=== PATIENT | male | born 1935 | race Caucasian/White ===

== ENCOUNTER 2018-08-12 17:55 | Inpatient (IN) | payer OTHER ==
[~2018-08-12] VITALS: Ht 182.9 cm; Wt 66.3 kg
[2018-08-12 17:57] VITALS: BP 126/73
[2018-08-12 20:38] LABS: AMP/METHAMP Negative (Negative); BARBITURATES Negative (Negative); BENZODIAZEPINES Negative (Negative); COCAINE Negative (Negative); METHADONE Negative (Negative); OPIATES POSITIVE (Negative); PCP Negative (Negative)
[2018-08-12] MEDS ORDERED: SEROQUEL 50 MG50 MG PO (20:39)
[2018-08-12] MEDS ORDERED: DEPAKOTE SPRIN125 MG PO ×2 (20:39→20:56)
[2018-08-12] MEDS ORDERED: DURAGESIC1 EACH TOP (20:40)
[2018-08-12] MEDS ORDERED: HALDOL5 MG/1 ML PO (20:40)
[2018-08-12 20:50] LABS: HEMOGLOBIN 13.7 gm/dL (14.0-18.0); MCH 29.4 pg (26.0-34.0); MCHC 33.6 g/dL (28.0-37.0); MCV 87.6 fL (80.0-100.0); PLATELET COUNT 198 thou/uL (150-400); RBC 4.67 mil/uL (4.50-6.00); RDW 16.2 % (10.5-14.5); WBC 6.3 thou/uL (4.0-11.0)
[2018-08-12] MEDS ORDERED: FEVERALL650 M1 RECTAL (20:50)
[2018-08-12] MEDS ORDERED: APAP650 PO (20:51)
[2018-08-12] MEDS ORDERED: ALBUTEROL0.63 MG/3 INH (20:53)
[2018-08-12] MEDS ORDERED: PULMICORT0.5 MG/22 INH (20:54)
[2018-08-12] MEDS ORDERED: DECADRON4 MG PO (20:55)
[2018-08-12] MEDS ORDERED: BISACODYL SUPP10 MG RECTAL (20:57)
[2018-08-12] MEDS ORDERED: FLOMAX0.4 MG PO (20:58)
[2018-08-12] MEDS ORDERED: LIQUITUSS200 MG/5 M PO (20:59)
[2018-08-12] MEDS ORDERED: LANTUS SUBQ (20:59)
[2018-08-12] MEDS ORDERED: HUMALOG100 UNIT/1 SUBQ (21:01)
[2018-08-12] MEDS ORDERED: LORAZEPAM 22 MG/1 ML SUBLING (21:02)
[2018-08-12] MEDS ORDERED: MSL20MG/ML SUBLING (21:03)
[2018-08-12] MEDS ORDERED: SEROQUEL 25 MG25 M1 PO (21:04)
[2018-08-12 21:31] LABS: ABSOLUTE NEUTROPHILS 4.5 thou/uL (1.4-8.2)
[2018-08-12 21:32] LABS: ANISOCYTOSIS 1+; PLATELET ESTIMATE NORMAL
[2018-08-12 21:52] LABS: ANION GAP 11 mmol/L (7-16); BUN 28 mg/dL (7-18); CALCIUM 8.8 mg/dL (8.5-10.1); CHLORIDE 101 mmol/L (98-107); CO2 29 mmol/L (21-32); CREATININE 0.9 mg/dL (0.7-1.3); GLUCOSE 67 mg/dL (74-106); SODIUM 141 mmol/L (136-145)
[2018-08-12 21:58] LABS: TROPONIN-I <0.06 ng/mL (<0.06)
[2018-08-12 22:42] VITALS: BP 152/65
[2018-08-13] MEDS ORDERED: TYLENOL325 MG PO (05:50)
[2018-08-13] MEDS ORDERED: DURAGESIC1 EAC4 TRANSDERM (05:53)
[2018-08-13] MEDS ORDERED: ALBUTEROL0.63 MG/3 INH (05:57)
[2018-08-13 08:10] VITALS: BP 137/79
--- NOTE | 2018-08-13 08:25 | EKG ---
[facility] [address] ELECTROCARDIOGRAM REPORT Name: MORALES GOODE Room #: 527B-B ADM IN M.R.#: [id number] ������������������ Admission: 08/12/18 ������������������ Attend Phys: Vishal Fuchs DO Discharge: ������������������ Date of : 35 Report #: [id number] ����������������������������������������������������������������� [id number] THIS REPORT FOR: //name// [facility] ED Test Date: 2018-08-12 Test Time: 19:34:19 Pat Name: MORALES GOODE Department: Room: [facility] Gender: M Crusher Assembler: [email or web address] : 1935 Requested By: Darnell Mclaughlin Order Number: [id number] MD: Tunde Wilson Measurements Intervals [place] Rate: 61 P: -75 CT: 120 QRS: -4 QRSD: 89 T: 66 QT: 419 QTc: 422 Interpretive Statements Sinus or ectopic atrial rhythm Frequent premature supraventricular complexes Low voltage Nonspecific ST segment abnormality No previous ECG available for comparison Electronically Signed On 08-13-2018 8:25:30 CDT by Tunde Wilson [email or web address] ��������������������������������������������� <ELECTRONICALLY SIGNED> ���������������������������������������� By: Tunde Wilson MD, [facility] ��������������������������������������������� 08/13/18824 33 33 Tunde Wilson MD, FACC /EPI
[2018-08-13 21:16] VITALS: BP 141/87
[2018-08-14 11:00] VITALS: BP 116/44
[2018-08-14 20:06] VITALS: BP 127/58
[2018-08-15 08:15] VITALS: BP 116/44
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
[2018-08-16 07:40] VITALS: BP 133/77
[2018-08-16 13:48] LABS: HEMATOCRIT 42.7 % (42.0-52.0); HEMOGLOBIN 14.2 gm/dL (14.0-18.0); MCH 29.5 pg (26.0-34.0); MCHC 33.3 g/dL (28.0-37.0); MCV 88.5 fL (80.0-100.0); PLATELET COUNT 179 thou/uL (150-400); RBC 4.82 mil/uL (4.50-6.00); RDW 15.9 % (10.5-14.5); WBC 9.6 thou/uL (4.0-11.0)
[2018-08-16 13:56] LABS: CALCIUM 8.8 mg/dL (8.5-10.1); CREATININE 0.9 mg/dL (0.7-1.3)
[2018-08-16 14:22] LABS: ABSOLUTE NEUTROPHILS 7.8 thou/uL (1.4-8.2)
[2018-08-16 14:23] LABS: ANISOCYTOSIS 1+
[2018-08-16 19:38] VITALS: BP 160/71
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
== END 2018-08-17 16:21 | disposition hospice, home (50) | DRG 56 ==
LOC: ER 17:55 → SBH 22:24 → EROBS 22:24 → SBH 22:24
PROVIDERS: Hospitalist; Nurse Practitioner; ADMIT Psychiatry & Neurology Psychiatry
DX: G30.9 Alzheimer's disease, unspecified (principal); J96.91 Respiratory failure, unspecified with hypoxia; F02.81 Dementia in other diseases classified elsewhere, unspecified severity, with behavioral disturbance; F32.9 Major depressive disorder, single episode, unspecified; F41.9 Anxiety disorder, unspecified; Z51.5 Encounter for palliative care; E11.649 Type 2 diabetes mellitus with hypoglycemia without coma; E78.5 Hyperlipidemia, unspecified; J44.9 Chronic obstructive pulmonary disease, unspecified; I25.10 Atherosclerotic heart disease of native coronary artery without angina pectoris; F43.10 Post-traumatic stress disorder, unspecified; Z74.01 Bed confinement status; Z87.891 Personal history of nicotine dependence; Z85.118 Personal history of other malignant neoplasm of bronchus and lung; Z85.46 Personal history of malignant neoplasm of prostate; Z99.81 Dependence on supplemental oxygen; Z79.4 Long term (current) use of insulin; Z79.899 Other long term (current) drug therapy
CPT/HCPCS: 10880